=== PATIENT | female | born 1990 | race Caucasian/White ===

== ENCOUNTER 2017-03-24 05:54 | Emergency (ER) | payer SELFPAY ==
[~2017-03-24] VITALS: Ht 165.1 cm; Wt 63.5 kg
[2017-03-24 05:57] VITALS: BP 135/82; PULSE 105; RESP 16; TEMP 98.1; O2SAT 100
--- NOTE | 2017-03-24 06:15 | PD ---
HPI Chief Complaint: Injury Time Seen by Provider: 06:06 Travel History International Travel<30 days: No Contact w/Intl Traveler<30days: No Traveled to known affect area: No History of Present Illness HPI Patient is a 2-year-old female presenting to emergency Department for evaluation of left hand pain. Patient states she was giving her friend a piggyback ride on Friday night while they were out at the bar when she fell landing on her hand. She states it's been swollen, she reports decreased playground aide strength and bruising to her fingers. The pain is a 3 out of 10. She states the pain is exacerbated with movement, pain is somewhat alleviated with rest. Symptom onset was sudden, severity is moderate. [facility] Past Medical History Medical History: Denies Significant Hx Musculoskeletal: Yes (LEFT ELBOW FX) ?: Not LMP: 03/19/17 Past Surgical History Surgical History: No Previous Surgery Social History Alcohol Use: Yes (3X WEEKLY) Tobacco Use: Yes (1/2PPD) Substance Use: No Allergies-Medications (Allergen,Severity, Reaction): Coded Allergies: bee venom protein (honey bee) (Verified Allergy, Severe, Anaphylaxis, 03/24) milk (Verified Allergy, Intermediate, Diarrhea, 03/24/17) Uncoded Allergies: FIREBALL (Allergy, Severe, Anaphylaxis, 03/24/17) Reported Meds & Prescriptions Reported Meds & Active Scripts Active No Active Prescriptions or Reported Medications Review of Systems Except as stated in HPI: all other systems reviewed are Neg Musculoskeletal: Positive: Myalgias, Arthralgias, Pain Skin: Positive Change in Pigmentation Physical Exam Narrative GENERAL: Well-nourished, alert female. In no acute distress. SKIN: Warm and dry. Faint bruising to the PIP joints on the second through fifth fingers HEAD: Normocephalic. EYES: No scleral icterus. No injection or drainage. NECK: Supple, trachea midline. No JVD or lymphadenopathy. CARDIOVASCULAR: Regular rate and rhythm without murmurs, gallops, or rubs. RESPIRATORY: Breath sounds equal bilaterally. No accessory muscle use. GASTROINTESTINAL: Abdomen soft, non-tender, nondistended. MUSCULOSKELETAL: No cyanosis, or edema. 5 out of 5 playground aide strength in left hand, 2+ radial pulse, brisk for some 3 second capillary refill. BACK: Nontender without obvious deformity. No CVA tenderness. Data Data Last Documented VS Vital Signs Date Time Temp Pulse Resp B/P (MAP) Pulse Ox O2 Delivery O2 Flow Rate FiO2 03/24/17 05:57 98.1 105 16 135/82 (99) 100 Room Air Orders Orders Hand, Limited (2vws) (03/24/17 ) MDM Medical Decision Making Medical Screen Exam Complete: Yes Emergency Medical Condition: Yes Interpretation(s) Vital Signs Date Time Temp Pulse Resp B/P (MAP) Pulse Ox O2 Delivery O2 Flow Rate FiO2 03/24/17 05:57 98.1 105 16 135/82 (99) 100 Room Air Differential Diagnosis Fracture versus sprain versus strain versus other Narrative Course Patient is a well-appearing 26-year-old female presenting for evaluation of left hand pain after a mechanical fall 5 days ago. Patient is neurovascularly intact. There are no obvious deformities noted on exam. X-ray ordered and pending. X-ray of her hand is negative. Patient is encouraged to continue conservative management as she has been. She is encouraged to follow with a primary doctor or orthopedic surgeon as needed. Patient is stable for discharge. Diagnosis Primary Impression: Hand sprain Qualified Codes: S63.92XA - Sprain of unspecified part of left wrist and hand , initial encounter Referrals: Orthopaedic Surgeon Primary Care Physician Patient Instructions: General Instructions, Hand Sprain (ED) Additional Instructions: Follow-up with her primary doctor Follow-up with an orthopedic surgeon if needed Continue conservative management Alternate heat and ice, continue range of motion exercises, avoid exacerbating activities Return to emergency department for any new or worsening symptoms Take ibuprofen or acetaminophen as needed and as directed for pain Med/Other Pt SpecificInfo: No Change to Meds Scripts No Active Prescriptions or Reported Meds Disposition: 01 DISCHARGE HOME Condition: Stable Sue Rasmussen Hermila VILLEGAS Mar 24, 2017 06:15
--- NOTE | 2017-03-24 06:33 | RADRPT ---
EXAM DATE/TIME: 03/24/2017 06:24 [facility] COMPARISON: No previous studies available for comparison. INDICATIONS : Fall, 5 days ago pain on posterior portion of hand at 3rd metacarpal. MEDICAL HISTORY : None. SURGICAL HISTORY : None. ENCOUNTER: Initial ACUITY: 1 day PAIN SCORE: 6/10 LOCATION: Left hand FINDINGS: Two view examination of the left hand demonstrates no soft tissue swelling, dislocation, or fracture. The joint spaces are maintained. Bony mineralization is normal. CONCLUSION: No acute disease. Andrew Hills MD on March 24, 2017 at 6:31 Board Certified Radiologist. This report was verified electronically.
== END 2017-03-24 06:47 | disposition home or self-care (01) ==
LOC: NEPD 05:54
DX: S63.92XA Sprain of unspecified part of left wrist and hand, initial encounter (principal); W19.XXXA Unspecified fall, initial encounter; F17.210 Nicotine dependence, cigarettes, uncomplicated
CPT/HCPCS: 73120; 99283